=== PATIENT | male | born 1960 | race Caucasian/White ===

== ENCOUNTER 2017-02-18 09:00 | Inpatient (IN) | payer OTHER ==
[~2017-02-18] VITALS: Ht 165.1 cm; Wt 53.0 kg
[~2017-02-18 09:00] MED LIST: ADVAIR 250/501 DISK IH; ADVAIR HFA120 INHALA IH; ALBUTEROL; ALBUTEROL SULF8.5 GM IH; AMLODIPINE BESY10 MG PO; AMLODIPINE BESYL5 MG PO; ASPIR 8181 M1 PO; ASPIR-LOW81 MG PO; ASPIRIN81 M1 PO; ATARAX,VISTARIL25 MG PO; Ascorbic Acid,Ester- PO; Aspirin E.C. PO; B/P MEDS; BACTRIM,SEPT1 TABLET PO; BLOOD THINNER; Baciguent TP; CEFTIN500 MG PO; CHLORDIAZEPOXID25 MG PO; COMBIVENT RESPIM4 GM IH; Colace PO; Cozaar PO; DIOVAN160 MG PO; DUONEB 2.5-0.5 M3 ML AEROSOL; Ecotrin PO; FLOVENT 22120 INHALA IH; FOLBEE PLUS TABL5 MG PO; FOLIC ACID; FOLIC ACID1 MG PO; Folvite PO; HYDROXYZINE HCL25 MG PO; IBUPROFEN600 MG PO; KEFLEX500 MG PO; Keflex PO; LABETALOL HCL200 MG PO; LEVAQUIN500 MG PO; LEVOFLOXACIN750 MG PO; LORTAB 5-325 M1 EACH PO; LOSARTAN POTASS50 MG PO; Lasix PO; Levaquin PO; Lopressor PO; MEDROL DOSEPAK4 MG PO; MELOXICAM15 MG PO; METOPROLOL SUC100 MG PO; MOBIC15 MG PO; MOTRIN600 MG PO; MYCOSTATIN 100,60 ML PO; NIFEDIPINE ER90 MG PO; NORVASC10 MG PO; Normodyne,Trandate PO; Norvasc PO; OXYCODONE HCL5 MG PO; Oscal 500 w/Vitamin PO; PANTOPRAZOLE SO40 MG PO; PEPCID40 MG PO; PHOSLO667 M1 PO; PREDNISONE10 MG PO; PREDNISONE20 MG PO; PREDNISONE5 MG PO; PREDNISONE50 MG PO; PROAIR HFA8.5 GM IH; PROVENTIL,2.5 MG/3 M IH; Protonix PO; SPIRIVA RESPIMAT4 GM IH; SPIRIVA1 INHALATI IH; SYMBICORT60 INHALA1 IH; Senokot S,Pericolace PO; TAB-A-VITE1 EACH PO; THERAGRAN1 TABLET PO; TYLENOL WITH C1 EACH PO; Theragran PO; Thiamine,Vitamin B1 PO; Tylenol Extra Streng PO; VENTOLIN HFA18 GM IH; VITAMIN B-1100 MG PO; ZITHROMAX TRI-500 MG PO; ZITHROMAX Z-PA250 MG PO; ZITHROMAX250 MG PO; oxyCODONE PO; predniSONE PO
[2017-02-18] MEDS ORDERED: TRAZODONE HCL50 MG PO (10:10)
[2017-02-18 10:11] VITALS: BP 164/78
[2017-02-18 10:19] LABS: HEMATOCRIT 44.7 % (38.0-50.0); MCH 29.3 PG (29.0-34.0); MCHC 32.7 G/DL (30.0-36.0); MCV 89.6 FL (86-99); MEAN PLAT.VOLUME 9.4 uM^3 (9.0-12.4); PLATELET COUNT 285 K/uL (156-360); RBC DIS.WIDTH-CV 13.1 % (11.8-14.6); RBC DIS.WIDTH-SD 42.9 % (39-53); RED BLOOD COUNT 4.99 M/uL (4.00-5.50); WHITE BLOOD COUNT 6.6 K/uL (4.1-10.2)
[2017-02-18 10:22] LABS: INTER. NORMALIZED RATIO 1.1; PROTHROMBIN TIME 10.7 (9.2-11.2); PTT 29.2 (25-32)
[2017-02-18 10:42] LABS: ADD MIUA? YES; BILIRUBIN NEGATIVE; BLOOD SMALL; COLOR YELLOW ((YELLOW)); GLUCOSE (STRIP) NEGATIVE; KETONES NEGATIVE; LEUKOCYTES NEGATIVE; NITRITE NEGATIVE; PROTEIN (STRIP) NEGATIVE; SPECIFIC GRAVITY 1.017 (1.000-1.030); UROBILINOGEN 0.2 MG/DL (0.2-1.0)
[2017-02-18 10:47] LABS: ANION GAP 12 MEQ/L (2-14); CHLORIDE 106 MEQ/L (99-109); GFR ESTIMATE (CALCULATED) 55 mL/min/; GLUCOSE 85 mg/dL (70-99); POTASSIUM 4.2 MEQ/L (3.7-5.4); SAMPLE HEMOLYSIS CHECK 0; SAMPLE ICTERIC CHECK 0; SAMPLE LIPEMIA CHECK 0; SODIUM 139 MEQ/L (136-147); UREA NITROGEN (BUN) 22 mg/dL (9-23)
[2017-02-18 10:56] LABS: BACTERIA NONE SEEN /HPF; EPITHELIAL CELLS NONE SEEN /HPF; MUCUS TRACE /LPF; WHITE BLOOD CELLS 0-5 /HPF (0-5)
[2017-02-18 11:10] LABS: METH RESISTANT S AUREUS PCR NEGATIVE (NEGATIVE)
[2017-02-18 11:11] LABS: PROBE CHECK PASS; SPECIMEN PROCESSING CONTROL PASS
[2017-02-18 16:46] VITALS: BP 153/80
[2017-02-18 19:55] VITALS: BP 135/86
[2017-02-18 23:42] VITALS: BP 146/79
[2017-02-19 04:31] VITALS: BP 167/88
[2017-02-19 06:38] LABS: HEMATOCRIT 36.2 % (38.0-50.0); MCV 89.8 FL (86-99)
[2017-02-19 08:32] VITALS: BP 163/87
[2017-02-19] MEDS ORDERED: OXYCODONE HCL5 MG PO (09:46)
[2017-02-19 11:11] VITALS: BP 159/80
[2017-02-19 16:17] VITALS: BP 168/80
[2017-02-19 19:50] VITALS: BP 195/88
[2017-02-19 23:50] VITALS: BP 143/75
[2017-02-20 05:39] LABS: HEMATOCRIT 34.7 % (38.0-50.0); MCV 88.7 FL (86-99)
[2017-02-20 08:10] VITALS: BP 137/73
== END 2017-02-20 15:54 | disposition home or self-care (01) | DRG 483 ==
LOC: 3EAST 09:00 → 2SOUTH 09:00 → 3EAST 15:46
PROVIDERS: Orthopaedic Surgery
DX: M19.012 Primary osteoarthritis, left shoulder (principal); M19.011 Primary osteoarthritis, right shoulder; I10 Essential (primary) hypertension; J44.9 Chronic obstructive pulmonary disease, unspecified; Z87.891 Personal history of nicotine dependence
CPT/HCPCS: 80048; 81003; 85014; 85018; 85027; 85610; 85730; 86850; 86900; 86901; 87641; 94640; 94640 76; 99202; C1776; J0330; J0690; J2250; J2405; J2795; J3301; J7030; J7050; Q0177

== ENCOUNTER 2017-05-31 21:05 | Emergency (ER) | payer OTHER ==
[~2017-05-31] VITALS: Ht 165.1 cm; Wt 56.0 kg
[~2017-05-31 21:05] MED LIST changes: +TRAZODONE HCL50 MG PO
[2017-05-31 22:38] VITALS: BP 145/85
== END 2017-05-31 22:41 | disposition home or self-care (01) ==
LOC: EME → EDBD 21:05 → EME 22:41
PROC: 3E0234Z Introduction of Serum, Toxoid and Vaccine into Muscle, Percutaneous Approach (ICD-10-PCS; principal; 2017-05-31)
DX: S01.111A Laceration without foreign body of right eyelid and periocular area, initial encounter (principal); F10.129 Alcohol abuse with intoxication, unspecified; S09.90XA Unspecified injury of head, initial encounter; Z23 Encounter for immunization; I10 Essential (primary) hypertension; Z91.14 Patient's other noncompliance with medication regimen; J44.9 Chronic obstructive pulmonary disease, unspecified; Z87.891 Personal history of nicotine dependence
CPT/HCPCS: 99281; 99284

== ENCOUNTER 2017-06-01 02:04 | Emergency (ER) | payer OTHER ==
[~2017-06-01] VITALS: Ht 165.1 cm; Wt 54.7 kg
[2017-06-01 05:36] VITALS: BP 126/79
== END 2017-06-01 06:06 | disposition home or self-care (01) ==
LOC: EME 02:04
PROC: 0HQ0XZZ Repair Scalp Skin, External Approach (ICD-10-PCS; principal; 2017-06-01)
DX: S01.01XA Laceration without foreign body of scalp, initial encounter (principal); S01.111A Laceration without foreign body of right eyelid and periocular area, initial encounter; S09.8XXA Other specified injuries of head, initial encounter; W19.XXXA Unspecified fall, initial encounter; F10.129 Alcohol abuse with intoxication, unspecified; Z87.891 Personal history of nicotine dependence
CPT/HCPCS: 70450; 72125; 99281; 99284

== ENCOUNTER 2017-06-17 08:42 | Emergency (ER) | payer OTHER ==
[~2017-06-17] VITALS: Ht 162.6 cm; Wt 53.8 kg
[2017-06-17 09:20] VITALS: BP 137/75
== END 2017-06-17 09:25 | disposition home or self-care (01) ==
LOC: EME 08:42
DX: S01.01XD Laceration without foreign body of scalp, subsequent encounter (principal); Y09 Assault by unspecified means; I10 Essential (primary) hypertension; F41.9 Anxiety disorder, unspecified; Z87.891 Personal history of nicotine dependence
CPT/HCPCS: 99281; 99283

== ENCOUNTER → 2017-08-04 | Outpatient (CLI) | payer OTHER | END | disposition home or self-care (01) | LOC: CDC 10:19 | DX: Z01.810 Encounter for preprocedural cardiovascular examination (principal); L72.0 Epidermal cyst; R94.31 Abnormal electrocardiogram [ECG] [EKG] | CPT/HCPCS: 93000 ==

== ENCOUNTER 2017-11-23 03:16 | Inpatient (IN) | payer OTHER ==
[~2017-11-23] VITALS: Ht 165.1 cm; Wt 61.9 kg
[2017-11-23 06:10] LABS: HEMATOCRIT 40.7 % (38.0-50.0); HEMOGLOBIN 13.9 G/DL (12.5-16.6); MCH 30.5 PG (29.0-34.0); MCHC 34.2 G/DL (30.0-36.0); MCV 89.3 FL (86-99); PLATELET COUNT 324 K/uL (156-360); RBC DIS.WIDTH-CV 13.9 % (11.8-14.6); RED BLOOD COUNT 4.56 M/uL (4.00-5.50); WHITE BLOOD COUNT 9.8 K/uL (4.1-10.2)
[2017-11-23 06:17] LABS: INTER. NORMALIZED RATIO 1.1
[2017-11-23 06:19] LABS: PTT 25.1 SEC (25-37)
[2017-11-23 06:20] LABS: ALBUMIN 4.6 g/dL (3.2-4.8); CHLORIDE 110 mEq/L (99-109); POTASSIUM 4.2 mEq/L (3.7-5.4); SODIUM 143 mEq/L (136-147)
[2017-11-23 06:23] LABS: GLUCOSE 92 mg/dL (70-99); TOTAL PROTEIN 7.7 g/dL (6.4-8.3)
[2017-11-23 06:24] LABS: APPEARANCE CLEAR ((CLEAR)); BILIRUBIN NEGATIVE; BLOOD MODERATE; COLOR YELLOW ((YELLOW)); GLUCOSE (STRIP) NEGATIVE; KETONES NEGATIVE; LEUKOCYTES NEGATIVE; NITRITE NEGATIVE; PROTEIN (STRIP) >=500; UROBILINOGEN 0.2 MG/DL (0.2-1.0)
[2017-11-23 06:25] LABS: TOTAL BILIRUBIN 0.5 mg/dL (0.0-1.0)
[2017-11-23 06:26] LABS: SERUM ETHYL ALCOHOL 157 mg/dL
[2017-11-23 06:27] LABS: ALKALINE PHOSPHATASE 82 IU/L (3-129); CREATININE 1.3 mg/dL (0.6-1.3); GFR ESTIMATE (CALCULATED) > 59 mL/min/ (58.99-99999)
[2017-11-23 06:28] LABS: AST (GOT) 28 IU/L (2-34)
[2017-11-23 06:29] LABS: UREA NITROGEN (BUN) 12 mg/dL (9-23)
[2017-11-23 06:29] LABS: BACTERIA NONE SEEN /HPF; EPITHELIAL CELLS NONE SEEN /HPF; MUCUS TRACE /LPF; RED BLOOD CELLS 0-5 /HPF (0-5); WHITE BLOOD CELLS 0-5 /HPF (0-5)
[2017-11-23 06:30] LABS: ACETAMINOPHEN (TYLENOL) < 10 mcg/mL (10-30); ALT (GPT) 32 IU/L (3-49); SALICYLATE < 5.0 MG/DL (15-30)
[2017-11-23 06:32] LABS: AMPHETAMINE NEGATIVE (500 ng/mL); BARBITURATES NEGATIVE (200 ng/mL); BENZODIAZEPINES NEGATIVE (150 ng/mL); BUPRENORPHINE NEGATIVE (10 ng/mL); COCAINE NEGATIVE (150 ng/mL); METHADONE NEGATIVE (200 ng/mL); METHAMPHETAMINE NEGATIVE (500 ng/mL); OPIATES (MORPHINE) NEGATIVE (100 ng/mL); OXYCODONE NEGATIVE (100 ng/mL); PHENCYCLIDINE NEGATIVE (25 ng/mL); PROPOXYPHENE NEGATIVE (300 ng/mL); THC CANNABINOIDS NEGATIVE (50 ng/mL); TRICYCLIC ANTIDEPRESSANTS NEGATIVE (300 ng/mL)
[2017-11-23 09:21] LABS: MAGNESIUM 1.9 mg/dL (1.3-2.7)
[2017-11-23 17:22] VITALS: BP 160/79
[2017-11-23 19:25] VITALS: BP 157/90
[2017-11-24] VITALS (7 sets, daily range): BP systolic 134–150; BP diastolic 68–85
[2017-11-24 05:40] LABS: HEMATOCRIT 37.3 % (38.0-50.0); HEMOGLOBIN 12.4 G/DL (12.5-16.6); MCH 30.2 PG (29.0-34.0); MCHC 33.2 G/DL (30.0-36.0); PLATELET COUNT 238 K/uL (156-360); RBC DIS.WIDTH-CV 14.1 % (11.8-14.6); RBC DIS.WIDTH-SD 46.9 % (39-53); WHITE BLOOD COUNT 6.9 K/uL (4.1-10.2)
[2017-11-24 06:29] LABS: CHLORIDE 106 MEQ/L (99-109); GFR ESTIMATE (CALCULATED) 37 mL/min/ (58.99-99999); GLUCOSE 91 mg/dL (70-99); POTASSIUM 3.6 MEQ/L (3.7-5.4); SODIUM 140 MEQ/L (136-147)
[2017-11-24 06:30] LABS: UREA NITROGEN (BUN) 21 mg/dL (9-23)
[2017-11-25 07:57] VITALS: BP 123/64
[2017-11-25 09:14] LABS: HEMATOCRIT 36.8 % (38.0-50.0); MCH 30.5 PG (29.0-34.0); MCHC 32.6 G/DL (30.0-36.0); MCV 93.4 FL (86-99); PLATELET COUNT 250 K/uL (156-360); RBC DIS.WIDTH-SD 47.9 % (39-53); RED BLOOD COUNT 3.94 M/uL (4.00-5.50); WHITE BLOOD COUNT 7.1 K/uL (4.1-10.2)
[2017-11-25 09:44] LABS: CHLORIDE 109 MEQ/L (99-109); GLUCOSE 122 mg/dL (70-99); MAGNESIUM 1.6 mg/dl (1.3-2.7); SODIUM 139 MEQ/L (136-147); UREA NITROGEN (BUN) 18 mg/dL (9-23)
[2017-11-25 09:49] LABS: CREATININE 1.4 MG/DL (0.6-1.3); GFR ESTIMATE (CALCULATED) 55 mL/min/ (58.99-99999); POTASSIUM 4.4 MEQ/L (3.7-5.4)
[2017-11-25 12:51] VITALS: BP 120/72
[2017-11-25 16:14] VITALS: BP 141/68
[2017-11-25 23:53] VITALS: BP 135/85; BP 150/81
[2017-11-26] VITALS (8 sets, daily range): BP systolic 107–140; BP diastolic 68–80
[2017-11-26 09:56] LABS: HEMATOCRIT 40.3 % (38.0-50.0); HEMOGLOBIN 13.1 G/DL (12.5-16.6); MCH 29.8 PG (29.0-34.0); MCHC 32.5 G/DL (30.0-36.0); MCV 91.8 FL (86-99); PLATELET COUNT 274 K/uL (156-360); RBC DIS.WIDTH-CV 13.7 % (11.8-14.6); RBC DIS.WIDTH-SD 46.8 % (39-53); RED BLOOD COUNT 4.39 M/uL (4.00-5.50)
[2017-11-26 10:35] LABS: CHLORIDE 106 MEQ/L (99-109); CREATININE 1.4 MG/DL (0.6-1.3); GFR ESTIMATE (CALCULATED) 55 mL/min/ (58.99-99999); GLUCOSE 137 mg/dL (70-99); POTASSIUM 4.3 MEQ/L (3.7-5.4); SODIUM 141 MEQ/L (136-147); UREA NITROGEN (BUN) 17 mg/dL (9-23)
[2017-11-27 03:59] VITALS: BP 113/68
[2017-11-27 06:27] LABS: CHLORIDE 106 MEQ/L (99-109); CREATININE 1.4 MG/DL (0.6-1.3); GFR ESTIMATE (CALCULATED) 55 mL/min/ (58.99-99999); SODIUM 140 MEQ/L (136-147); UREA NITROGEN (BUN) 20 mg/dL (9-23)
[2017-11-27 06:28] LABS: GLUCOSE 95 mg/dL (70-99)
[2017-11-27 08:17] VITALS: BP 124/76
[2017-11-27 11:47] VITALS: BP 124/70
[2017-11-27] MEDS ORDERED: ENDOCET 5-3251 EACH PO (15:34)
[2017-11-27] MEDS ORDERED: CEPHALEXIN500 MG PO (15:34)
[2017-11-27] MEDS ORDERED: FOLIC ACID1 MG PO (15:34)
[2017-11-27] MEDS ORDERED: SENNA LAX8.6 MG PO (15:34)
[2017-11-27] MEDS ORDERED: DOCUSATE SODIU100 MG PO (15:34)
[2017-11-27 15:51] VITALS: BP 128/74
== END 2017-11-27 19:20 | DRG 83 ==
LOC: EME → EDBD 03:16 → 4EAST 08:08 → EDOF 08:08 → ENRESERV 08:09 → 4EAST 17:13 → ENRESERV 11-26 21:08 → 3EAST 11-26 22:49
PROVIDERS: Internal Medicine; Physician Assistant
DX: S06.6X9A Traumatic subarachnoid hemorrhage with loss of consciousness of unspecified duration, initial encounter (principal); S01.01XA Laceration without foreign body of scalp, initial encounter; E78.5 Hyperlipidemia, unspecified; M50.221 Other cervical disc displacement at C4-C5 level; I13.0 Hypertensive heart and chronic kidney disease with heart failure and stage 1 through stage 4 chronic kidney disease, or unspecified chronic kidney disease; F12.90 Cannabis use, unspecified, uncomplicated; F17.200 Nicotine dependence, unspecified, uncomplicated; R51 Headache; M25.512 Pain in left shoulder; S81.811A Laceration without foreign body, right lower leg, initial encounter; S06.339A Contusion and laceration of cerebrum, unspecified, with loss of consciousness of unspecified duration, initial encounter; W18.30XA Fall on same level, unspecified, initial encounter; Y90.6 Blood alcohol level of 120-199 mg/100 ml; F10.229 Alcohol dependence with intoxication, unspecified; F10.239 Alcohol dependence with withdrawal, unspecified; Z99.81 Dependence on supplemental oxygen; Z68.1 Body mass index [BMI] 19.9 or less, adult; Z82.49 Family history of ischemic heart disease and other diseases of the circulatory system
CPT/HCPCS: 70450; 71046; 72125; 73030; 73590; 73700; 80048; 80053; 81003; 83735; 85027; 85610; 85730; 87070; 87075; 87205; 87641; 94640; 94640 76; 97530 GO; 97530 GP; 99202; 99281; 99285; G0480; J0690; J2270; J7030; J7120; Q0177; S0028

== ENCOUNTER 2018-01-12 08:57 | Emergency (ER) | payer OTHER ==
[~2018-01-12] VITALS: Ht 165.1 cm; Wt 55.7 kg
[~2018-01-12 08:57] MED LIST changes: +CEPHALEXIN500 MG PO; +DOCUSATE SODIU100 MG PO; +ENDOCET 5-3251 EACH PO; +SENNA LAX8.6 MG PO
[2018-01-12] MEDS ORDERED: KENLAOG,ARISTOC60 ML TP (10:08)
[2018-01-12 10:23] VITALS: BP 150/82
== END 2018-01-12 10:29 | disposition home or self-care (01) ==
LOC: EME 08:57
DX: S01.01XD Laceration without foreign body of scalp, subsequent encounter (principal); S06.6X9D Traumatic subarachnoid hemorrhage with loss of consciousness of unspecified duration, subsequent encounter; W19.XXXD Unspecified fall, subsequent encounter; F17.200 Nicotine dependence, unspecified, uncomplicated
CPT/HCPCS: 99281; 99284

== ENCOUNTER 2018-02-01 19:56 | Inpatient (IN) | payer OTHER ==
[~2018-02-01] VITALS: Ht 165.1 cm; Wt 56.0 kg
[~2018-02-01 19:56] MED LIST changes: -HYDROXYZINE HCL25 MG PO; +KENLAOG,ARISTOC60 ML TP
[2018-02-01 20:45] LABS: HEMATOCRIT 42.1 % (38.0-50.0); HEMOGLOBIN 14.6 G/DL (12.5-16.6); MCHC 34.7 G/DL (30.0-36.0); MCV 86.6 FL (86-99); PLATELET COUNT 310 K/uL (156-360); RBC DIS.WIDTH-CV 13.4 % (11.8-14.6); RBC DIS.WIDTH-SD 43.1 % (39-53); RED BLOOD COUNT 4.86 M/uL (4.00-5.50); WHITE BLOOD COUNT 9.5 K/uL (4.1-10.2)
[2018-02-01 20:53] LABS: CHLORIDE 96 mEq/L (99-109); POTASSIUM 4.5 mEq/L (3.7-5.4); SODIUM 131 mEq/L (136-147)
[2018-02-01 20:56] LABS: GLUCOSE 78 mg/dL (70-99)
[2018-02-01 20:58] LABS: CREATININE 0.9 mg/dL (0.6-1.3); GFR ESTIMATE (CALCULATED) > 59 mL/min/ (58.99-99999)
[2018-02-01 20:59] LABS: UREA NITROGEN (BUN) 11 mg/dL (9-23)
[2018-02-01 21:02] LABS: BASE EXCESS -4.4 mEq/L (-3 to +3); CARBOXY HGB 2.5 % (0-5)
[2018-02-01 21:03] LABS: BICARBONATE 19.2 mEq/L (22-26); COMMENTS - BLOOD GASES A+C+; DEVICE NC; O2 FLOW 2 L/MIN; PCO2 31 mm Hg (35-45); PO2 94 mm Hg (80-100); SITE RR; TOTAL RESP RATE 28 resp/min
[2018-02-01 21:05] LABS: MAGNESIUM 2.1 mg/dL (1.3-2.7)
[2018-02-01 21:08] LABS: SERUM ETHYL ALCOHOL 28 mg/dL
[2018-02-01 21:30] LABS: TROP-I INTERPRETATION NEGATIVE; TROPONIN-I 0.13 ng/mL (0.0-0.30)
[2018-02-01 21:32] LABS: ALBUMIN 3.8 g/dL (3.2-4.8)
[2018-02-01 21:34] LABS: TOTAL PROTEIN 7.5 g/dL (6.4-8.3)
[2018-02-01 21:36] LABS: TOTAL BILIRUBIN 0.4 mg/dL (0.0-1.0)
[2018-02-01 21:37] LABS: ALKALINE PHOSPHATASE 80 IU/L (3-129)
[2018-02-01 21:40] LABS: ALT (GPT) 68 IU/L (3-49); AST (GOT) 73 IU/L (2-34)
[2018-02-01 22:02] LABS: APPEARANCE CLEAR ((CLEAR)); BILIRUBIN NEGATIVE; BLOOD SMALL; COLOR YELLOW ((YELLOW)); GLUCOSE (STRIP) NEGATIVE; KETONES 20; LEUKOCYTES NEGATIVE; NITRITE NEGATIVE; PROTEIN (STRIP) >=500; SPECIFIC GRAVITY 1.012 (1.000-1.030); UROBILINOGEN 0.2 MG/DL (0.2-1.0)
[2018-02-01 22:08] LABS: BACTERIA 1+ /HPF; EPITHELIAL CELLS RARE /HPF; MUCUS NONE SEEN /LPF; RED BLOOD CELLS 0-5 /HPF (0-5)
[2018-02-02] VITALS (15 sets, daily range): BP systolic 121–148; BP diastolic 71–86
[2018-02-02] MEDS ORDERED: HYDROXYZINE PAM25 MG PO (01:16)
[2018-02-02] MEDS ORDERED: HYDROXYZINE HCL25 MG PO (01:17)
[2018-02-02 06:51] LABS: MAGNESIUM 2.3 mg/dl (1.3-2.7)
[2018-02-02 08:55] LABS: HEMATOCRIT 39.8 % (38.0-50.0); HEMOGLOBIN 13.1 G/DL (12.5-16.6); MCH 29.6 PG (29.0-34.0); MCHC 32.9 G/DL (30.0-36.0); MCV 89.8 FL (86-99); PLATELET COUNT 269 K/uL (156-360); RBC DIS.WIDTH-CV 13.5 % (11.8-14.6); RBC DIS.WIDTH-SD 44.5 % (39-53); RED BLOOD COUNT 4.43 M/uL (4.00-5.50); WHITE BLOOD COUNT 3.2 K/uL (4.1-10.2)
[2018-02-02 09:08] LABS: ALBUMIN 3.4 G/DL (3.2-4.8); ALKALINE PHOSPHATASE 58 IU/L (3-129); ALT (GPT) 47 IU/L (3-49); AST (GOT) 43 IU/L (2-34); CHLORIDE 99 MEQ/L (99-109); GFR ESTIMATE (CALCULATED) > 59 mL/min/ (58.99-99999); PHOSPHORUS 3.7 mg/dL (2.5-4.9); POTASSIUM 4.6 MEQ/L (3.7-5.4); SODIUM 133 MEQ/L (136-147); TOTAL BILIRUBIN 0.4 MG/DL (0.0-1.0); TOTAL PROTEIN 5.9 G/DL (6.4-8.3); UREA NITROGEN (BUN) 14 mg/dL (9-23)
[2018-02-02 09:09] LABS: GLUCOSE 103 mg/dL (70-99)
[2018-02-03] VITALS (7 sets, daily range): BP systolic 137–161; BP diastolic 78–88
[2018-02-03 06:44] LABS: HEMATOCRIT 35.4 % (38.0-50.0); HEMOGLOBIN 11.6 G/DL (12.5-16.6); MCH 28.9 PG (29.0-34.0); MCHC 32.8 G/DL (30.0-36.0); MCV 88.1 FL (86-99); PLATELET COUNT 260 K/uL (156-360); RBC DIS.WIDTH-CV 13.3 % (11.8-14.6); RBC DIS.WIDTH-SD 43.5 % (39-53); RED BLOOD COUNT 4.02 M/uL (4.00-5.50); WHITE BLOOD COUNT 6.7 K/uL (4.1-10.2)
[2018-02-03 08:16] LABS: ALKALINE PHOSPHATASE 47 IU/L (3-129); ALT (GPT) 36 IU/L (3-49); AST (GOT) 28 IU/L (2-34); CHLORIDE 104 MEQ/L (99-109); CREATININE 1.2 MG/DL (0.6-1.3); GFR ESTIMATE (CALCULATED) > 59 mL/min/ (58.99-99999); MAGNESIUM 2.3 mg/dl (1.3-2.7); POTASSIUM 3.7 MEQ/L (3.7-5.4); SODIUM 136 MEQ/L (136-147); TOTAL PROTEIN 5.3 G/DL (6.4-8.3); UREA NITROGEN (BUN) 18 mg/dL (9-23)
[2018-02-03 08:18] LABS: GLUCOSE 203 mg/dL (70-99); TOTAL BILIRUBIN 0.2 MG/DL (0.0-1.0)
[2018-02-04 03:30] VITALS: BP 151/98
[2018-02-04 06:20] LABS: BASOPHIL (%) 0 % (0-1); EOSINOPHIL (%) 0 % (0-5); HEMATOCRIT 36.1 % (38.0-50.0); HEMOGLOBIN 11.6 G/DL (12.5-16.6); IMMATURE GRANULOCYTE (%) 0.6 % (0.0-0.7); LYMPHOCYTE COUNT 0.3 K/uL (1.0-2.8); MCH 28.5 PG (29.0-34.0); MCHC 32.1 G/DL (30.0-36.0); MCV 88.7 FL (86-99); MONOCYTE (%) 4.3 % (3-12); MONOCYTE COUNT 0.3 K/uL (0-0.8); NEUTROPHIL (%) 91.1 % (45-76); NEUTROPHIL COUNT 6.2 K/uL (1.8-6.4); PLATELET COUNT 263 K/uL (156-360); RBC DIS.WIDTH-CV 13.5 % (11.8-14.6); RBC DIS.WIDTH-SD 44.6 % (39-53); RED BLOOD COUNT 4.07 M/uL (4.00-5.50); WHITE BLOOD COUNT 6.8 K/uL (4.1-10.2)
[2018-02-04 06:48] LABS: CHLORIDE 102 MEQ/L (99-109); GFR ESTIMATE (CALCULATED) > 59 mL/min/ (58.99-99999); GLUCOSE 177 mg/dL (70-99); POTASSIUM 3.4 MEQ/L (3.7-5.4); SODIUM 140 MEQ/L (136-147); UREA NITROGEN (BUN) 16 mg/dL (9-23)
[2018-02-04 07:28] VITALS: BP 148/87
[2018-02-04 12:25] VITALS: BP 135/88
[2018-02-04 16:10] VITALS: BP 136/88
[2018-02-04 20:10] VITALS: BP 154/82
[2018-02-05] VITALS (9 sets, daily range): BP systolic 141–190; BP diastolic 88–102
[2018-02-05 06:06] LABS: BASOPHIL (%) 0 % (0-1); EOSINOPHIL (%) 0 % (0-5); HEMATOCRIT 37.4 % (38.0-50.0); HEMOGLOBIN 12.2 G/DL (12.5-16.6); IMMATURE GRANULOCYTE (%) 0.5 % (0.0-0.7); LYMPHOCYTE COUNT 0.6 K/uL (1.0-2.8); MCH 29.5 PG (29.0-34.0); MCHC 32.6 G/DL (30.0-36.0); MCV 90.3 FL (86-99); MONOCYTE (%) 6.9 % (3-12); MONOCYTE COUNT 0.5 K/uL (0-0.8); NEUTROPHIL (%) 83.6 % (45-76); NEUTROPHIL COUNT 5.5 K/uL (1.8-6.4); PLATELET COUNT 238 K/uL (156-360); RBC DIS.WIDTH-CV 13.9 % (11.8-14.6); RBC DIS.WIDTH-SD 46.4 % (39-53); RED BLOOD COUNT 4.14 M/uL (4.00-5.50); WHITE BLOOD COUNT 6.5 K/uL (4.1-10.2)
[2018-02-05 06:29] LABS: CHLORIDE 101 MEQ/L (99-109); CREATININE 1.1 MG/DL (0.6-1.3); GFR ESTIMATE (CALCULATED) > 59 mL/min/ (58.99-99999); GLUCOSE 193 mg/dL (70-99); MAGNESIUM 1.7 mg/dl (1.3-2.7); POTASSIUM 3.9 MEQ/L (3.7-5.4); SODIUM 136 MEQ/L (136-147); UREA NITROGEN (BUN) 21 mg/dL (9-23)
[2018-02-06 01:07] VITALS: BP 139/76
[2018-02-06 04:07] VITALS: BP 134/87
[2018-02-06] MEDS ORDERED: XOPENEX HF200 INHALA IH (07:55)
[2018-02-06] MEDS ORDERED: PREDNISONE20 MG PO (07:56)
[2018-02-06] MEDS ORDERED: MUCINEX600 MG PO (07:56)
[2018-02-06] MEDS ORDERED: SPIRIVA1 INHALATI IH (07:58)
[2018-02-06 08:06] VITALS: BP 150/88
[2018-02-06 11:27] VITALS: BP 148/93
== END 2018-02-06 13:52 | disposition home or self-care (01) | DRG 190 ==
LOC: EME 19:56 → 5SOUTH 23:16 → EDOF 23:16 → ENRESERV 23:17 → 4WEST 02-02 01:04 → ENRESERV 02-02 13:43 → 5SOUTH 02-02 15:03
PROVIDERS: Emergency Medicine; Internal Medicine Critical Care Medicine; Physician Assistant; Physician Assistant Medical; Surgery
PROC: 5A09357 Assistance with Respiratory Ventilation, Less than 24 Consecutive Hours, Continuous Positive Airway Pressure (ICD-10-PCS; principal; 2018-02-01)
DX: J44.1 Chronic obstructive pulmonary disease with (acute) exacerbation (principal); J96.01 Acute respiratory failure with hypoxia; E86.0 Dehydration; E87.1 Hypo-osmolality and hyponatremia; E87.2 Acidosis; F10.239 Alcohol dependence with withdrawal, unspecified; B19.20 Unspecified viral hepatitis C without hepatic coma; F41.9 Anxiety disorder, unspecified; F32.9 Major depressive disorder, single episode, unspecified; K21.9 Gastro-esophageal reflux disease without esophagitis; I11.0 Hypertensive heart disease with heart failure; I50.9 Heart failure, unspecified; E78.5 Hyperlipidemia, unspecified; I48.92 Unspecified atrial flutter; R74.8 Abnormal levels of other serum enzymes; F17.210 Nicotine dependence, cigarettes, uncomplicated; Z91.14 Patient's other noncompliance with medication regimen
CPT/HCPCS: 36600; 71045; 71046; 80048; 80053; 81003; 82803; 83605; 83735; 83880; 84100; 84484; 85025; 85027; 85379; 87040; 87070; 87205; 87502; 87641; 93005; 94002; 94640; 94640 76; 94644; 94760; 94799; 99202; 99281; 99285; G0480; J0456; J0696; J1644; J1956; J2920; J2930; J3411; J3475; J7030; J7512; Q0177

== ENCOUNTER 2018-05-15 09:32 | Inpatient (IN) | payer OTHER ==
[~2018-05-15] VITALS: Ht 162.6 cm; Wt 43.5 kg
[2018-05-15] VITALS (9 sets, daily range): BP systolic 119–147; BP diastolic 73–85
[~2018-05-15 09:32] MED LIST changes: +HYDROXYZINE HCL25 MG PO; +MUCINEX600 MG PO; -TRAZODONE HCL50 MG PO; +XOPENEX HF200 INHALA IH
[2018-05-15 11:10] LABS: APPEARANCE CLEAR ((CLEAR)); BILIRUBIN NEGATIVE; BLOOD SMALL; COLOR YELLOW ((YELLOW)); GLUCOSE (STRIP) 50; KETONES 5; LEUKOCYTES NEGATIVE; NITRITE NEGATIVE; PROTEIN (STRIP) >=500; SPECIFIC GRAVITY 1.013 (1.000-1.030); UROBILINOGEN 0.2 MG/DL (0.2-1.0)
[2018-05-15 11:16] LABS: BACTERIA NONE SEEN /HPF; EPITHELIAL CELLS NONE SEEN /HPF; MUCUS TRACE /LPF; RED BLOOD CELLS 0-5 /HPF (0-5); UCUL ADDED? NO; WHITE BLOOD CELLS 0-5 /HPF (0-5)
[2018-05-15 11:19] LABS: TROP-I INTERPRETATION NEGATIVE; TROPONIN-I 0.04 ng/mL (0.0-0.30)
[2018-05-15 11:25] LABS: AMPHETAMINE NEGATIVE (500 ng/mL); BARBITURATES NEGATIVE (200 ng/mL); BENZODIAZEPINES NEGATIVE (150 ng/mL); BUPRENORPHINE NEGATIVE (10 ng/mL); COCAINE NEGATIVE (150 ng/mL); METHADONE NEGATIVE (200 ng/mL); METHAMPHETAMINE NEGATIVE (500 ng/mL); OPIATES (MORPHINE) NEGATIVE (100 ng/mL); OXYCODONE NEGATIVE (100 ng/mL); PHENCYCLIDINE NEGATIVE (25 ng/mL); PROPOXYPHENE NEGATIVE (300 ng/mL); THC CANNABINOIDS NEGATIVE (50 ng/mL); TRICYCLIC ANTIDEPRESSANTS NEGATIVE (300 ng/mL)
[2018-05-15 11:42] LABS: ALBUMIN 2.6 g/dL (3.2-4.8); CHLORIDE 74 mEq/L (99-109); POTASSIUM 3.6 mEq/L (3.7-5.4)
[2018-05-15 11:44] LABS: GLUCOSE 130 mg/dL (70-99); TOTAL PROTEIN 4.9 g/dL (6.4-8.3)
[2018-05-15 11:46] LABS: TOTAL BILIRUBIN 0.6 mg/dL (0.0-1.0)
[2018-05-15 11:47] LABS: SERUM ETHYL ALCOHOL < 10 mg/dL
[2018-05-15 11:48] LABS: ALKALINE PHOSPHATASE 62 IU/L (3-129); CREATININE 0.8 mg/dL (0.6-1.3); GFR ESTIMATE (CALCULATED) > 59 mL/min/ (58.99-99999)
[2018-05-15 11:49] LABS: AST (GOT) 57 IU/L (2-34); UREA NITROGEN (BUN) 10 mg/dL (9-23)
[2018-05-15 11:50] LABS: HEMATOCRIT 36.5 % (38.0-50.0); HEMOGLOBIN 13.7 G/DL (12.5-16.6); MCH 29.8 PG (29.0-34.0); MCHC 37.5 G/DL (30.0-36.0); MCV 79.5 FL (86-99); PLATELET COUNT 188 K/uL (156-360); RBC DIS.WIDTH-SD 34.7 % (39-53); RED BLOOD COUNT 4.59 M/uL (4.00-5.50); WHITE BLOOD COUNT 13.3 K/uL (4.1-10.2)
[2018-05-15 11:51] LABS: ALT (GPT) 45 IU/L (3-49); LIPASE 4 U/L (1.0-51.0)
[2018-05-15 12:00] LABS: SODIUM 106 mEq/L (136-147)
[2018-05-15 12:40] LABS: CHLORIDE 80 mEq/L (99-109); POTASSIUM 3.8 mEq/L (3.7-5.4)
[2018-05-15 12:41] LABS: GLUCOSE 123 mg/dL (70-99)
[2018-05-15 12:45] LABS: CREATININE 0.7 mg/dL (0.6-1.3); GFR ESTIMATE (CALCULATED) > 59 mL/min/ (58.99-99999)
[2018-05-15 12:46] LABS: UREA NITROGEN (BUN) 9 mg/dL (9-23)
[2018-05-15 12:51] LABS: SODIUM 106 mEq/L (136-147)
[2018-05-15 13:22] LABS: CREATINE KINASE 460 IU/L (1-294)
[2018-05-15 15:31] LABS: PCO2 29 mm Hg (35-45); PO2 74 mm Hg (80-100); pH 7.41 (7.35-7.45)
[2018-05-15 15:32] LABS: BICARBONATE 18.4 mEq/L (22-26); CARBOXY HGB 2.7 % (0-5); COMMENTS - BLOOD GASES A+C+; DEVICE RA; METHEMOGLOBIN 0.9 % (0-1.5); O2 SATURATION (CALCULATED) 93.5 % (95-99); SITE RR; TOTAL RESP RATE 18 resp/min
[2018-05-15 16:10] LABS: THYROTROPIN (TSH) 0.31 MIU/L (0.4-5.5)
[2018-05-15 16:12] LABS: ACETAMINOPHEN (TYLENOL) < 10 MCG/ML (10-30); SALICYLATE < 3.0 MG/DL (15-30)
[2018-05-15 18:07] LABS: CHLORIDE 85 mEq/L (99-109); POTASSIUM 3.8 mEq/L (3.7-5.4)
[2018-05-15 18:12] LABS: CREATININE 0.7 mg/dL (0.6-1.3); GFR ESTIMATE (CALCULATED) > 59 mL/min/ (58.99-99999)
[2018-05-15 18:13] LABS: UREA NITROGEN (BUN) 9 mg/dL (9-23)
[2018-05-15 18:32] LABS: GLUCOSE 84 mg/dL (70-99)
[2018-05-15 18:33] LABS: SODIUM 113 mEq/L (136-147)
[2018-05-15 18:46] LABS: MAGNESIUM 1.5 mg/dL (1.3-2.7)
[2018-05-15 20:31] LABS: INTER. NORMALIZED RATIO 0.9
[2018-05-15 20:34] LABS: PTT 26.4 SEC (25-37)
[2018-05-15 20:56] LABS: CHLORIDE 84 MEQ/L (99-109); CREATININE 0.6 MG/DL (0.6-1.3); GFR ESTIMATE (CALCULATED) > 59 mL/min/ (58.99-99999); POTASSIUM 3.1 MEQ/L (3.7-5.4); UREA NITROGEN (BUN) 9 mg/dL (9-23)
[2018-05-15 21:44] LABS: GLUCOSE 111 mg/dL (70-99); SODIUM 112 MEQ/L (136-147)
[2018-05-15 22:44] LABS: CHLORIDE 88 MEQ/L (99-109); CREATININE 0.6 MG/DL (0.6-1.3); GFR ESTIMATE (CALCULATED) > 59 mL/min/ (58.99-99999); GLUCOSE 104 mg/dL (70-99); POTASSIUM 2.6 MEQ/L (3.7-5.4); UREA NITROGEN (BUN) 9 mg/dL (9-23)
[2018-05-15 22:50] LABS: SODIUM 113 MEQ/L (136-147)
[2018-05-15 23:47] LABS: DEVICE VENT; FI02 60 %; MECHANICAL RATE 15 resp/min; MODE ACVC; PEEP 8 CM/H20; SITE RR ALINE; TIDAL VOLUME 400 ML; TOTAL RESP RATE 15 resp/min
[2018-05-15 23:48] LABS: BASE EXCESS -6.7 mEq/L (-3 to +3); BICARBONATE 19.2 mEq/L (22-26); CARBOXY HGB 1.9 % (0-5); METHEMOGLOBIN 0.6 % (0-1.5); O2 SATURATION (CALCULATED) 98.7 % (95-99); PCO2 39 mm Hg (35-45); PO2 116 mm Hg (80-100)
[2018-05-16] VITALS (17 sets, daily range): BP systolic 92–172; BP diastolic 42–80
[2018-05-16 00:55] LABS: HEMATOCRIT 33.1 % (38.0-50.0); HEMOGLOBIN 12.2 G/DL (12.5-16.6); MCH 30.1 PG (29.0-34.0); MCHC 36.9 G/DL (30.0-36.0); MCV 81.7 FL (86-99); PLATELET COUNT 172 K/uL (156-360); RBC DIS.WIDTH-CV 11.9 % (11.8-14.6); RBC DIS.WIDTH-SD 35.8 % (39-53); RED BLOOD COUNT 4.05 M/uL (4.00-5.50); WHITE BLOOD COUNT 6.9 K/uL (4.1-10.2)
[2018-05-16 02:28] LABS: ALBUMIN 2.2 g/dL (3.2-4.8)
[2018-05-16 02:31] LABS: GLUCOSE 87 mg/dL (70-99)
[2018-05-16 02:33] LABS: TOTAL BILIRUBIN 0.7 mg/dL (0.0-1.0)
[2018-05-16 02:34] LABS: ALKALINE PHOSPHATASE 52 IU/L (3-129); CREATININE 0.6 mg/dL (0.6-1.3); GFR ESTIMATE (CALCULATED) > 59 mL/min/ (58.99-99999)
[2018-05-16 02:35] LABS: UREA NITROGEN (BUN) 8 mg/dL (9-23)
[2018-05-16 02:36] LABS: AST (GOT) 45 IU/L (2-34)
[2018-05-16 02:37] LABS: ALT (GPT) 39 IU/L (3-49)
[2018-05-16 02:41] LABS: CHLORIDE 95 mEq/L (99-109); POTASSIUM 4.2 mEq/L (3.7-5.4); SODIUM 121 mEq/L (136-147)
[2018-05-16 07:42] LABS: ALKALINE PHOSPHATASE 43 IU/L (3-129); ALT (GPT) 28 IU/L (3-49); AST (GOT) 30 IU/L (2-34); CHLORIDE 94 MEQ/L (99-109); CREATININE 0.6 MG/DL (0.6-1.3); GFR ESTIMATE (CALCULATED) > 59 mL/min/ (58.99-99999); GLUCOSE 93 mg/dL (70-99); POTASSIUM 3.6 MEQ/L (3.7-5.4); SODIUM 122 MEQ/L (136-147); TOTAL BILIRUBIN 0.5 MG/DL (0.0-1.0); TOTAL PROTEIN 3.8 G/DL (6.4-8.3); UREA NITROGEN (BUN) 8 mg/dL (9-23)
[2018-05-16 10:08] LABS: CHLORIDE 94 mEq/L (99-109)
[2018-05-16 10:12] LABS: GLUCOSE 209 mg/dL (70-99); SODIUM 119 mEq/L (136-147)
[2018-05-16 10:13] LABS: CREATININE 0.7 mg/dL (0.6-1.3); GFR ESTIMATE (CALCULATED) > 59 mL/min/ (58.99-99999)
[2018-05-16 10:14] LABS: UREA NITROGEN (BUN) 7 mg/dL (9-23)
[2018-05-16 12:27] LABS: CHLORIDE 90 MEQ/L (99-109); CREATININE 0.6 MG/DL (0.6-1.3); GFR ESTIMATE (CALCULATED) > 59 mL/min/ (58.99-99999); GLUCOSE 227 mg/dL (70-99); POTASSIUM 3.4 MEQ/L (3.7-5.4); SODIUM 119 MEQ/L (136-147); UREA NITROGEN (BUN) 7 mg/dL (9-23)
[2018-05-16 14:35] LABS: CHLORIDE 90 MEQ/L (99-109); CREATININE 0.6 MG/DL (0.6-1.3); GFR ESTIMATE (CALCULATED) > 59 mL/min/ (58.99-99999); GLUCOSE 267 mg/dL (70-99); POTASSIUM 4.2 MEQ/L (3.7-5.4); SODIUM 113 MEQ/L (136-147); UREA NITROGEN (BUN) 6 mg/dL (9-23)
[2018-05-16 16:49] LABS: CHLORIDE 92 MEQ/L (99-109); CREATININE 0.6 MG/DL (0.6-1.3); GFR ESTIMATE (CALCULATED) > 59 mL/min/ (58.99-99999); GLUCOSE 157 mg/dL (70-99); POTASSIUM 3.7 MEQ/L (3.7-5.4); UREA NITROGEN (BUN) 6 mg/dL (9-23)
[2018-05-16 16:50] LABS: SODIUM 114 MEQ/L (136-147)
[2018-05-16 18:38] LABS: CHLORIDE 91 MEQ/L (99-109); CREATININE 0.7 MG/DL (0.6-1.3); GFR ESTIMATE (CALCULATED) > 59 mL/min/ (58.99-99999); GLUCOSE 128 mg/dL (70-99); POTASSIUM 3.8 MEQ/L (3.7-5.4); UREA NITROGEN (BUN) 6 mg/dL (9-23)
[2018-05-16 18:45] LABS: SODIUM 117 MEQ/L (136-147)
[2018-05-16 20:34] LABS: CHLORIDE 91 MEQ/L (99-109); CREATININE 0.6 MG/DL (0.6-1.3); GFR ESTIMATE (CALCULATED) > 59 mL/min/ (58.99-99999); GLUCOSE 125 mg/dL (70-99); POTASSIUM 3.2 MEQ/L (3.7-5.4); SODIUM 120 MEQ/L (136-147); UREA NITROGEN (BUN) 6 mg/dL (9-23)
[2018-05-16 22:36] LABS: CHLORIDE 96 mEq/L (99-109); POTASSIUM 3.4 mEq/L (3.7-5.4); SODIUM 122 mEq/L (136-147)
[2018-05-16 22:38] LABS: GLUCOSE 169 mg/dL (70-99)
[2018-05-16 22:42] LABS: CREATININE 0.7 mg/dL (0.6-1.3); GFR ESTIMATE (CALCULATED) > 59 mL/min/ (58.99-99999)
[2018-05-16 22:43] LABS: UREA NITROGEN (BUN) 5 mg/dL (9-23)
[2018-05-16 23:26] LABS: C DIFF TOXIN POSITIVE (NEGATIVE)
[2018-05-17 00:02] VITALS: BP 118/71
[2018-05-17 00:43] LABS: CHLORIDE 97 mEq/L (99-109); SODIUM 122 mEq/L (136-147)
[2018-05-17 00:44] LABS: POTASSIUM 4.7 mEq/L (3.7-5.4)
[2018-05-17 00:45] LABS: GLUCOSE 175 mg/dL (70-99)
[2018-05-17 00:49] LABS: CREATININE 0.7 mg/dL (0.6-1.3); GFR ESTIMATE (CALCULATED) > 59 mL/min/ (58.99-99999)
[2018-05-17 00:50] LABS: UREA NITROGEN (BUN) 4 mg/dL (9-23)
[2018-05-17 02:19] LABS: CHLORIDE 98 mEq/L (99-109); SODIUM 122 mEq/L (136-147)
[2018-05-17 02:21] LABS: GLUCOSE 171 mg/dL (70-99)
[2018-05-17 02:22] LABS: POTASSIUM 3.5 mEq/L (3.7-5.4)
[2018-05-17 02:25] LABS: CREATININE 0.7 mg/dL (0.6-1.3); GFR ESTIMATE (CALCULATED) > 59 mL/min/ (58.99-99999)
[2018-05-17 02:26] LABS: UREA NITROGEN (BUN) 4 mg/dL (9-23)
[2018-05-17 04:02] VITALS: BP 143/79
[2018-05-17 04:45] LABS: CHLORIDE 96 mEq/L (99-109); POTASSIUM 3.6 mEq/L (3.7-5.4); SODIUM 122 mEq/L (136-147)
[2018-05-17 04:46] LABS: GLUCOSE 152 mg/dL (70-99)
[2018-05-17 04:50] LABS: CREATININE 0.7 mg/dL (0.6-1.3); GFR ESTIMATE (CALCULATED) > 59 mL/min/ (58.99-99999)
[2018-05-17 04:51] LABS: UREA NITROGEN (BUN) 4 mg/dL (9-23)
[2018-05-17 06:42] LABS: CHLORIDE 93 MEQ/L (99-109); CREATININE 0.7 MG/DL (0.6-1.3); GFR ESTIMATE (CALCULATED) > 59 mL/min/ (58.99-99999); GLUCOSE 165 mg/dL (70-99); MAGNESIUM 1.2 mg/dl (1.3-2.7); POTASSIUM 3.3 MEQ/L (3.7-5.4); UREA NITROGEN (BUN) 4 mg/dL (9-23)
[2018-05-17 06:43] LABS: SODIUM 118 MEQ/L (136-147)
[2018-05-17 07:48] LABS: PHOSPHORUS 1.1 mg/dL (2.5-4.9)
[2018-05-17 08:00] VITALS: BP 169/71
[2018-05-17 09:00] VITALS: BP 120/58
[2018-05-17 09:32] LABS: CHLORIDE 96 MEQ/L (99-109); CREATININE 0.7 MG/DL (0.6-1.3); GFR ESTIMATE (CALCULATED) > 59 mL/min/ (58.99-99999); GLUCOSE 142 mg/dL (70-99); POTASSIUM 3.5 MEQ/L (3.7-5.4); SODIUM 120 MEQ/L (136-147); UREA NITROGEN (BUN) 4 mg/dL (9-23)
[2018-05-17 10:50] LABS: CHLORIDE 97 mEq/L (99-109); POTASSIUM 3.9 mEq/L (3.7-5.4); SODIUM 123 mEq/L (136-147)
[2018-05-17 10:52] LABS: GLUCOSE 162 mg/dL (70-99); MAGNESIUM 2.9 mg/dL (1.3-2.7)
[2018-05-17 10:54] LABS: HEPATITIS B SURFACE ANTIGEN Nonreactive
[2018-05-17 10:56] LABS: CREATININE 0.7 mg/dL (0.6-1.3); GFR ESTIMATE (CALCULATED) > 59 mL/min/ (58.99-99999)
[2018-05-17 10:56] LABS: ANTI-HEPATITIS A VIRUS (IGM) Nonreactive
[2018-05-17 10:57] LABS: UREA NITROGEN (BUN) 3 mg/dL (9-23)
[2018-05-17 10:57] LABS: ANTI-HEPATITIS B CORE (IGM) Nonreactive
[2018-05-17 11:01] LABS: HEPATITIS C ANTIBODY REACTIVE
[2018-05-17 13:00] LABS: CHLORIDE 93 mEq/L (99-109)
[2018-05-17 13:02] LABS: GLUCOSE 222 mg/dL (70-99); SODIUM 119 mEq/L (136-147)
[2018-05-17 13:03] LABS: POTASSIUM 3.1 mEq/L (3.7-5.4)
[2018-05-17 13:05] LABS: CREATININE 0.7 mg/dL (0.6-1.3); GFR ESTIMATE (CALCULATED) > 59 mL/min/ (58.99-99999)
[2018-05-17 13:06] LABS: UREA NITROGEN (BUN) 3 mg/dL (9-23)
[2018-05-17 16:52] LABS: CHLORIDE 93 MEQ/L (99-109); CREATININE 0.7 MG/DL (0.6-1.3); GFR ESTIMATE (CALCULATED) > 59 mL/min/ (58.99-99999); GLUCOSE 216 mg/dL (70-99); UREA NITROGEN (BUN) 3 mg/dL (9-23)
[2018-05-17 16:54] LABS: SODIUM 119 MEQ/L (136-147)
[2018-05-17 16:56] LABS: CHLORIDE 95 mEq/L (99-109); POTASSIUM 3.2 mEq/L (3.7-5.4); SODIUM 121 mEq/L (136-147)
[2018-05-17 16:58] LABS: GLUCOSE 210 mg/dL (70-99)
[2018-05-17 17:02] LABS: CREATININE 0.7 mg/dL (0.6-1.3); GFR ESTIMATE (CALCULATED) > 59 mL/min/ (58.99-99999)
[2018-05-17 17:03] LABS: UREA NITROGEN (BUN) 3 mg/dL (9-23)
[2018-05-17 18:41] LABS: CHLORIDE 94 MEQ/L (99-109); CREATININE 0.7 MG/DL (0.6-1.3); GFR ESTIMATE (CALCULATED) > 59 mL/min/ (58.99-99999); GLUCOSE 212 mg/dL (70-99); POTASSIUM 3.2 MEQ/L (3.7-5.4); UREA NITROGEN (BUN) 3 mg/dL (9-23)
[2018-05-17 18:46] LABS: SODIUM 118 MEQ/L (136-147)
[2018-05-17 19:00] VITALS: BP 144/80
[2018-05-17 20:00] VITALS: BP 154/90
[2018-05-17 20:24] LABS: CHLORIDE 94 mEq/L (99-109); POTASSIUM 3.6 mEq/L (3.7-5.4); SODIUM 120 mEq/L (136-147)
[2018-05-17 20:26] LABS: GLUCOSE 201 mg/dL (70-99)
[2018-05-17 20:30] LABS: CREATININE 0.7 mg/dL (0.6-1.3); GFR ESTIMATE (CALCULATED) > 59 mL/min/ (58.99-99999)
[2018-05-17 20:31] LABS: UREA NITROGEN (BUN) 4 mg/dL (9-23)
[2018-05-17 22:12] LABS: CHLORIDE 96 mEq/L (99-109); POTASSIUM 4.2 mEq/L (3.7-5.4); SODIUM 122 mEq/L (136-147)
[2018-05-17 22:13] LABS: GLUCOSE 133 mg/dL (70-99)
[2018-05-17 22:17] LABS: CREATININE 0.7 mg/dL (0.6-1.3); GFR ESTIMATE (CALCULATED) > 59 mL/min/ (58.99-99999)
[2018-05-17 22:18] LABS: UREA NITROGEN (BUN) 4 mg/dL (9-23)
[2018-05-18] VITALS (11 sets, daily range): BP systolic 103–159; BP diastolic 62–85
[2018-05-18 05:30] LABS: CHLORIDE 97 mEq/L (99-109); POTASSIUM 4.7 mEq/L (3.7-5.4); SODIUM 122 mEq/L (136-147)
[2018-05-18 05:32] LABS: GLUCOSE 175 mg/dL (70-99)
[2018-05-18 05:36] LABS: CREATININE 0.7 mg/dL (0.6-1.3); GFR ESTIMATE (CALCULATED) > 59 mL/min/ (58.99-99999)
[2018-05-18 05:37] LABS: UREA NITROGEN (BUN) 6 mg/dL (9-23)
[2018-05-18 11:10] LABS: CHLORIDE 97 MEQ/L (99-109); CREATININE 0.8 MG/DL (0.6-1.3); GFR ESTIMATE (CALCULATED) > 59 mL/min/ (58.99-99999); GLUCOSE 154 mg/dL (70-99); POTASSIUM 4.5 MEQ/L (3.7-5.4); SODIUM 123 MEQ/L (136-147); UREA NITROGEN (BUN) 6 mg/dL (9-23)
[2018-05-18 15:40] LABS: CHLORIDE 98 mEq/L (99-109); SODIUM 124 mEq/L (136-147)
[2018-05-18 15:42] LABS: GLUCOSE 169 mg/dL (70-99)
[2018-05-18 15:46] LABS: CREATININE 0.8 mg/dL (0.6-1.3); GFR ESTIMATE (CALCULATED) > 59 mL/min/ (58.99-99999)
[2018-05-18 15:47] LABS: UREA NITROGEN (BUN) 7 mg/dL (9-23)
[2018-05-18 18:56] LABS: PHOSPHORUS 2.9 mg/dL (2.5-4.9)
[2018-05-18 19:11] LABS: CHLORIDE 98 MEQ/L (99-109); CREATININE 0.8 MG/DL (0.6-1.3); GFR ESTIMATE (CALCULATED) > 59 mL/min/ (58.99-99999); GLUCOSE 144 mg/dL (70-99); POTASSIUM 3.7 MEQ/L (3.7-5.4); SODIUM 126 MEQ/L (136-147); UREA NITROGEN (BUN) 8 mg/dL (9-23)
[2018-05-18 23:53] LABS: CHLORIDE 99 mEq/L (99-109); POTASSIUM 3.7 mEq/L (3.7-5.4); SODIUM 126 mEq/L (136-147)
[2018-05-18 23:55] LABS: GLUCOSE 120 mg/dL (70-99)
[2018-05-18 23:59] LABS: CREATININE 0.8 mg/dL (0.6-1.3); GFR ESTIMATE (CALCULATED) > 59 mL/min/ (58.99-99999)
[2018-05-19] VITALS (14 sets, daily range): BP systolic 114–176; BP diastolic 58–90
[2018-05-19] LABS: UREA NITROGEN (BUN) 11 mg/dL (9-23)
[2018-05-19 03:56] LABS: CHLORIDE 98 mEq/L (99-109); POTASSIUM 3.9 mEq/L (3.7-5.4); SODIUM 127 mEq/L (136-147)
[2018-05-19 03:58] LABS: GLUCOSE 143 mg/dL (70-99)
[2018-05-19 04:02] LABS: CREATININE 0.8 mg/dL (0.6-1.3); GFR ESTIMATE (CALCULATED) > 59 mL/min/ (58.99-99999)
[2018-05-19 04:03] LABS: UREA NITROGEN (BUN) 12 mg/dL (9-23)
[2018-05-19 07:38] LABS: CHLORIDE 98 MEQ/L (99-109); POTASSIUM 3.7 MEQ/L (3.7-5.4); SODIUM 127 MEQ/L (136-147)
[2018-05-19 07:43] LABS: CREATININE 0.8 MG/DL (0.6-1.3); GFR ESTIMATE (CALCULATED) > 59 mL/min/ (58.99-99999); GLUCOSE 141 mg/dL (70-99); UREA NITROGEN (BUN) 12 mg/dL (9-23)
[2018-05-19 13:39] LABS: CHLORIDE 98 MEQ/L (99-109); CREATININE 0.9 MG/DL (0.6-1.3); GFR ESTIMATE (CALCULATED) > 59 mL/min/ (58.99-99999); GLUCOSE 176 mg/dL (70-99); POTASSIUM 3.5 MEQ/L (3.7-5.4); SODIUM 129 MEQ/L (136-147); UREA NITROGEN (BUN) 12 mg/dL (9-23)
[2018-05-19] MEDS ORDERED: HYDROXYZINE PAM25 MG PO (16:20)
[2018-05-19] MEDS ORDERED: NIFEDIPINE ER90 MG PO (16:20)
[2018-05-19] MEDS ORDERED: VITAMIN B-1100 MG PO (16:20)
[2018-05-19] MEDS ORDERED: TRAZODONE HCL50 MG PO (16:20)
[2018-05-19] MEDS ORDERED: COMBIVENT RESPIM4 GM IH (16:21)
[2018-05-19 19:50] LABS: CHLORIDE 98 MEQ/L (99-109); CREATININE 0.8 MG/DL (0.6-1.3); GFR ESTIMATE (CALCULATED) > 59 mL/min/ (58.99-99999); POTASSIUM 3.4 MEQ/L (3.7-5.4); SODIUM 130 MEQ/L (136-147); UREA NITROGEN (BUN) 11 mg/dL (9-23)
[2018-05-19 20:02] LABS: GLUCOSE 112 mg/dL (70-99)
[2018-05-20 00:55] LABS: CHLORIDE 101 mEq/L (99-109); POTASSIUM 3.4 mEq/L (3.7-5.4); SODIUM 131 mEq/L (136-147)
[2018-05-20 00:57] LABS: GLUCOSE 88 mg/dL (70-99)
[2018-05-20 01:01] LABS: CREATININE 0.8 mg/dL (0.6-1.3); GFR ESTIMATE (CALCULATED) > 59 mL/min/ (58.99-99999)
[2018-05-20 01:02] LABS: UREA NITROGEN (BUN) 11 mg/dL (9-23)
[2018-05-20 04:00] VITALS: BP 168/96
[2018-05-20 07:24] LABS: BASOPHIL (%) 0.2 % (0-1); EOSINOPHIL (%) 0.2 % (0-5); HEMATOCRIT 31.7 % (38.0-50.0); HEMOGLOBIN 10.7 G/DL (12.5-16.6); IMMATURE GRANULOCYTE (%) 1.2 % (0.0-0.7); LYMPHOCYTE (%) 2.1 % (15-42); LYMPHOCYTE COUNT 0.4 K/uL (1.0-2.8); MCH 29.5 PG (29.0-34.0); MCHC 33.8 G/DL (30.0-36.0); MONOCYTE (%) 9.4 % (3-12); MONOCYTE COUNT 1.7 K/uL (0-0.8); NEUTROPHIL (%) 86.9 % (45-76); NEUTROPHIL COUNT 15.7 K/uL (1.8-6.4); PLATELET COUNT 196 K/uL (156-360); RBC DIS.WIDTH-CV 13.6 % (11.8-14.6); RBC DIS.WIDTH-SD 43.9 % (39-53); RED BLOOD COUNT 3.63 M/uL (4.00-5.50); WHITE BLOOD COUNT 18.1 K/uL (4.1-10.2)
[2018-05-20 07:26] LABS: MCV 87.3 FL (86-99)
[2018-05-20 07:34] LABS: CHLORIDE 98 MEQ/L (99-109); CREATININE 0.8 MG/DL (0.6-1.3); GFR ESTIMATE (CALCULATED) > 59 mL/min/ (58.99-99999); GLUCOSE 80 mg/dL (70-99); POTASSIUM 3.2 MEQ/L (3.7-5.4); SODIUM 132 MEQ/L (136-147); UREA NITROGEN (BUN) 11 mg/dL (9-23)
[2018-05-20 08:00] VITALS: BP 164/92
[2018-05-20 12:00] VITALS: BP 174/83
[2018-05-20 13:00] LABS: MAGNESIUM 1.5 mg/dl (1.3-2.7)
[2018-05-20 13:43] LABS: CHLORIDE 98 MEQ/L (99-109); CREATININE 0.7 MG/DL (0.6-1.3); GFR ESTIMATE (CALCULATED) > 59 mL/min/ (58.99-99999); GLUCOSE 81 mg/dL (70-99); POTASSIUM 3.2 MEQ/L (3.7-5.4); SODIUM 134 MEQ/L (136-147); UREA NITROGEN (BUN) 12 mg/dL (9-23)
[2018-05-20 16:00] VITALS: BP 164/90
[2018-05-20 19:40] LABS: CHLORIDE 101 MEQ/L (99-109); CREATININE 0.8 MG/DL (0.6-1.3); GFR ESTIMATE (CALCULATED) > 59 mL/min/ (58.99-99999); SODIUM 133 MEQ/L (136-147); UREA NITROGEN (BUN) 14 mg/dL (9-23)
[2018-05-20 19:44] LABS: GLUCOSE 138 mg/dL (70-99); POTASSIUM 4.1 MEQ/L (3.7-5.4)
[2018-05-20 20:45] VITALS: BP 189/93
[2018-05-20 23:48] VITALS: BP 175/81
[2018-05-21 03:08] VITALS: BP 163/79
[2018-05-21 09:28] LABS: BASOPHIL (%) 0.1 % (0-1); EOSINOPHIL (%) 0.4 % (0-5); HEMATOCRIT 31.3 % (38.0-50.0); HEMOGLOBIN 10.5 G/DL (12.5-16.6); IMMATURE GRANULOCYTE (%) 0.9 % (0.0-0.7); LYMPHOCYTE (%) 2.2 % (15-42); LYMPHOCYTE COUNT 0.2 K/uL (1.0-2.8); MCH 30.2 PG (29.0-34.0); MCHC 33.5 G/DL (30.0-36.0); MCV 89.9 FL (86-99); MONOCYTE (%) 8.4 % (3-12); MONOCYTE COUNT 0.8 K/uL (0-0.8); NEUTROPHIL COUNT 7.8 K/uL (1.8-6.4); PLATELET COUNT 177 K/uL (156-360); RBC DIS.WIDTH-SD 45.6 % (39-53); RED BLOOD COUNT 3.48 M/uL (4.00-5.50); WHITE BLOOD COUNT 8.9 K/uL (4.1-10.2)
[2018-05-21 09:58] LABS: CHLORIDE 100 MEQ/L (99-109); CREATININE 0.8 MG/DL (0.6-1.3); GFR ESTIMATE (CALCULATED) > 59 mL/min/ (58.99-99999); GLUCOSE 148 mg/dL (70-99); POTASSIUM 3.7 MEQ/L (3.7-5.4); SODIUM 135 MEQ/L (136-147); UREA NITROGEN (BUN) 13 mg/dL (9-23)
[2018-05-21 10:02] VITALS: BP 179/95
[2018-05-21 11:16] VITALS: BP 174/88
[2018-05-21 18:06] VITALS: BP 164/98
[2018-05-21 19:10] VITALS: BP 160/85
[2018-05-21 23:26] VITALS: BP 170/84
[2018-05-22] VITALS (7 sets, daily range): BP systolic 131–181; BP diastolic 76–91
[2018-05-23 04:30] VITALS: BP 168/80
[2018-05-23 07:16] VITALS: BP 194/91
[2018-05-23 08:34] LABS: HEMATOCRIT 30.9 % (38.0-50.0); HEMOGLOBIN 10.5 G/DL (12.5-16.6); MCV 88.3 FL (86-99); PLATELET COUNT 179 K/uL (156-360); WHITE BLOOD COUNT 6.7 K/uL (4.1-10.2)
[2018-05-23 08:49] LABS: CHLORIDE 102 mEq/L (99-109); POTASSIUM 3.4 mEq/L (3.7-5.4); SODIUM 138 mEq/L (136-147)
[2018-05-23 08:50] LABS: GLUCOSE 120 mg/dL (70-99)
[2018-05-23 08:54] LABS: CREATININE 0.8 mg/dL (0.6-1.3); GFR ESTIMATE (CALCULATED) > 59 mL/min/ (58.99-99999)
[2018-05-23 08:55] LABS: UREA NITROGEN (BUN) 14 mg/dL (9-23)
[2018-05-23 11:32] VITALS: BP 165/80
[2018-05-23 15:00] VITALS: BP 141/81
[2018-05-23 19:46] VITALS: BP 153/82
[2018-05-23 23:45] VITALS: BP 162/80
[2018-05-24 04:45] VITALS: BP 145/85
[2018-05-24 09:43] VITALS: BP 141/81
[2018-05-24 11:59] LABS: HEMATOCRIT 31.7 % (38.0-50.0); HEMOGLOBIN 10.9 G/DL (12.5-16.6); MCH 30.4 PG (29.0-34.0); MCHC 34.4 G/DL (30.0-36.0); MCV 88.3 FL (86-99); PLATELET COUNT 218 K/uL (156-360); RBC DIS.WIDTH-SD 45.5 % (39-53); RED BLOOD COUNT 3.59 M/uL (4.00-5.50); WHITE BLOOD COUNT 11.2 K/uL (4.1-10.2)
[2018-05-24 12:07] LABS: CHLORIDE 103 mEq/L (99-109); POTASSIUM 3.7 mEq/L (3.7-5.4); SODIUM 138 mEq/L (136-147)
[2018-05-24 12:08] LABS: MAGNESIUM 1.4 mg/dL (1.3-2.7)
[2018-05-24 12:09] LABS: GLUCOSE 179 mg/dL (70-99)
[2018-05-24 12:12] LABS: CREATININE 0.8 mg/dL (0.6-1.3); GFR ESTIMATE (CALCULATED) > 59 mL/min/ (58.99-99999)
[2018-05-24 12:13] LABS: UREA NITROGEN (BUN) 14 mg/dL (9-23)
[2018-05-24 12:19] LABS: TROP-I INTERPRETATION NEGATIVE; TROPONIN-I 0.03 ng/mL (0.0-0.30)
[2018-05-24 13:45] VITALS: BP 125/87
[2018-05-24 16:18] VITALS: BP 151/87
[2018-05-24 20:15] VITALS: BP 136/77
[2018-05-25 01:17] VITALS: BP 140/78
[2018-05-25 05:03] VITALS: BP 137/81
[2018-05-25 05:33] LABS: HEMATOCRIT 32.1 % (38.0-50.0); HEMOGLOBIN 10.8 G/DL (12.5-16.6); MCH 30.1 PG (29.0-34.0); MCHC 33.6 G/DL (30.0-36.0); MCV 89.4 FL (86-99); PLATELET COUNT 195 K/uL (156-360); RBC DIS.WIDTH-CV 14.1 % (11.8-14.6); RED BLOOD COUNT 3.59 M/uL (4.00-5.50); WHITE BLOOD COUNT 15.2 K/uL (4.1-10.2)
[2018-05-25 06:09] LABS: CHLORIDE 105 MEQ/L (99-109); GFR ESTIMATE (CALCULATED) > 59 mL/min/ (58.99-99999); GLUCOSE 122 mg/dL (70-99); MAGNESIUM 1.5 mg/dl (1.3-2.7); POTASSIUM 3.9 MEQ/L (3.7-5.4); SODIUM 141 MEQ/L (136-147); UREA NITROGEN (BUN) 16 mg/dL (9-23)
[2018-05-25 07:19] VITALS: BP 134/78
[2018-05-25 11:23] LABS: APPEARANCE CLOUDY ((CLEAR)); BILIRUBIN NEGATIVE; BLOOD SMALL; COLOR YELLOW ((YELLOW)); GLUCOSE (STRIP) NEGATIVE; KETONES NEGATIVE; LEUKOCYTES LARGE; NITRITE POSITIVE; PROTEIN (STRIP) 100; SPECIFIC GRAVITY 1.012 (1.000-1.030); UROBILINOGEN 0.2 MG/DL (0.2-1.0)
[2018-05-25 12:57] LABS: EPITHELIAL CELLS RARE /HPF; MUCUS NONE SEEN /LPF
[2018-05-25 12:58] LABS: BACTERIA 4+ /HPF; RED BLOOD CELLS RARE /HPF (0-5); UCUL ADDED? YES; WHITE BLOOD CELLS TNTC /HPF (0-5)
[2018-05-25 13:35] VITALS: BP 132/78
[2018-05-25 17:37] VITALS: BP 117/89
[2018-05-25 20:15] VITALS: BP 131/80
[2018-05-26 00:51] VITALS: BP 141/78
[2018-05-26 05:18] VITALS: BP 147/79
[2018-05-26 06:02] LABS: HEMATOCRIT 30.8 % (38.0-50.0); MCH 28.9 PG (29.0-34.0); MCHC 32.5 G/DL (30.0-36.0); RBC DIS.WIDTH-SD 45.1 % (39-53); RED BLOOD COUNT 3.46 M/uL (4.00-5.50); WHITE BLOOD COUNT 13.6 K/uL (4.1-10.2)
[2018-05-26 06:15] LABS: PLATELET COUNT 273 K/uL (156-360)
[2018-05-26 06:25] LABS: CHLORIDE 105 MEQ/L (99-109); GFR ESTIMATE (CALCULATED) > 59 mL/min/ (58.99-99999); GLUCOSE 121 mg/dL (70-99); MAGNESIUM 1.7 mg/dl (1.3-2.7); POTASSIUM 3.5 MEQ/L (3.7-5.4); SODIUM 141 MEQ/L (136-147); UREA NITROGEN (BUN) 19 mg/dL (9-23)
[2018-05-26 07:04] VITALS: BP 136/72
[2018-05-26 11:32] VITALS: BP 126/71
[2018-05-26] MEDS ORDERED: AMLODIPINE BESY10 MG PO (16:27)
[2018-05-26] MEDS ORDERED: VANCOCIN 250 M250 MG PO (16:27)
[2018-05-26] MEDS ORDERED: FOLIC ACID1 MG PO (16:28)
[2018-05-26] MEDS ORDERED: DAILY VALUE1 EACH PO (16:28)
[2018-05-26] MEDS ORDERED: CEFTIN500 MG PO (16:29)
[2018-05-26 16:30] VITALS: BP 1174/64
[2018-05-26] MEDS ORDERED: FAMOTIDINE20 MG PO (16:32)
[2018-05-26] MEDS ORDERED: SPIRIVA RESPIMAT4 GM IH (16:33)
[2018-05-26] MEDS ORDERED: LOPRESSOR25 MG PO (16:40)
[2018-05-26 19:00] VITALS: BP 127/73
== END 2018-05-26 19:57 | DRG 640 ==
LOC: EME 09:32 → EDOF 15:40 → 4EAST 15:40 → 4WEST 15:40 → ENRESERV 15:49 → 4WEST 17:23 → CANRESERV 05-19 16:58 → ENRESERV 05-19 16:58 → 4WEST 05-20 13:54 → ENRESERV 05-20 19:26 → 4EAST 05-20 20:41 → ENPENDDIS 05-26 → 4EAST 05-26 10:54 → CANRESERV 05-26 11:18 → ENRESERV 05-26 11:18 → 4EAST 05-26 19:57
PROVIDERS: Emergency Medicine; Hospitalist; Internal Medicine; Internal Medicine Critical Care Medicine; Internal Medicine Nephrology; Surgery
DX: E87.1 Hypo-osmolality and hyponatremia (principal); E86.0 Dehydration; E87.4 Mixed disorder of acid-base balance; E83.51 Hypocalcemia; E87.6 Hypokalemia; J96.01 Acute respiratory failure with hypoxia; A04.72 Enterocolitis due to Clostridium difficile, not specified as recurrent; L98.429 Non-pressure chronic ulcer of back with unspecified severity; R13.10 Dysphagia, unspecified; N39.0 Urinary tract infection, site not specified; J44.9 Chronic obstructive pulmonary disease, unspecified; R41.82 Altered mental status, unspecified; B19.20 Unspecified viral hepatitis C without hepatic coma; I10 Essential (primary) hypertension; I25.10 Atherosclerotic heart disease of native coronary artery without angina pectoris; E78.5 Hyperlipidemia, unspecified; F41.9 Anxiety disorder, unspecified; F10.20 Alcohol dependence, uncomplicated; Y90.0 Blood alcohol level of less than 20 mg/100 ml; M19.90 Unspecified osteoarthritis, unspecified site; F17.200 Nicotine dependence, unspecified, uncomplicated; Z78.1 Physical restraint status; Z91.19 Patient's noncompliance with other medical treatment and regimen
CPT/HCPCS: 36600; 70450; 71045; 74230; 80048; 80048 91; 80053; 80074; 81003; 82533 91; 82550; 82550 91; 82948; 83605; 83690; 83735; 83930; 83935; 84100; 84295; 84300; 84443; 84484; 85025; 85027; 85610; 85730; 87070; 87077; 87086; 87181; 87186; 87205; 87493; 87641; 92526 GN; 92610 GN; 92611 GN; 93005; 94002; 94003; 94640; 94760; 94799; 97530 GP; 99281; 99285; A6214; C1751; G0480; J0360; J0696; J1650; J2060; J2597; J2704; J3010; J3411; J3475; J3480; J7030; J7040; J7050; J7060; J7070; P9047; S0028; S0030